=== PATIENT | female | born 1990 | race Hispanic/Latino ===

== ENCOUNTER → 2019-04-27 | Day surgery (SDC) | payer OTHER ==
[~2019-04-27] MED LIST: FENTANYL CITRATE/PF 100MCG/2 ML INJ ONE; LIDOCAINE HCL 2% LOCAL INJ 5 ML SDV VIAL INJ ONE; MIDAZOLAM HCL 2 MG/2 ML VIAL ONE; PROPOFOL IV EMULSION 10 MG/ML 50 ML VIAL ONE; RANITIDINE HCL150 MG PO
--- OUTSIDE RECORDS SUMMARY | 2019-04-27 12:48 | XMS REPORT | Clinical Summary ---
Author Author [place] [facility] Organization [facility] Address Unknown Phone Unavailable Care Team Providers Care Carpentry Professional Name Role Phone Asked, No Pcp PCP Unavailable Allergies No Known Allergies Medications End Date Status Medication Sig Dispensed Refills Start Date Active multivitamin (THERAGRAN) Take 1 tablet 0 tablet by mouth daily. 02/24/2020 Active clotrimazole-betamethason Apply 30 g 0 e (LOTRISONE) 1-0.05 % topically 2 9 creamIndications: Vaginal (two) times a irritation day. 02/24/2019 Discontinued Take 1 tablet 0 vit,ntyf28-[id number]-fpeyi 29 by mouth mg iron- 1 mg tablet per daily. tablet 05/09/2018 ibuprofen (ADVIL,MOTRIN) Take 1 tablet 60 tablet 0 600 MG tablet (600 mg 8 total) by mouth every 6 (six) hours as needed (Cramping, Laceration or Incision Pain) for up to 30 days. Active Problems Problem Noted Date Oligohydramnios 04/05/2018 09/30/2017 Overview: LSIL pap, repeat . O pos BOY! Encounters Care Team Description Date Type Specialty Cynthia Nelson NP Pelvic pressure in female (Primary Dx); Vaginal irritation; Pelvic pain 02/24/2019 Office Visit Obstetrics and Gynecology Lilia Castillo MA 05/27/2018 Telephone Obstetrics and Gynecology Beto Russo MD Encounter for visit (Primary Dx); LGSIL on Pap smear of cervix 05/23/2018 Office Visit Obstetrics and Gynecology after 04/26/2018 Immunizations Name Dates Previously Given Next Due Tdap 04/08/2018 Family History Medical History Relation Name Comments No Known Problems Father No Known Problems Mother Relation Name Status Comments Father Mother Social History Date Tobacco Use Types Packs/Day Years Used Never Smoker Smokeless Tobacco: Never Used Tobacco Cessation: Counseling Given: Yes Alcohol Use Drinks/Week oz/Week Comments No Sex Assigned at Date Recorded Not on file Industry Job Start Date Occupation Not on file Not on file Not on file Travel End Travel History Travel Start No recent travel history available. Last Filed Vital Signs Time Taken Vital Sign Reading 02/24/2019 12:04 PM CDT Blood Pressure 134/93 02/24/2019 11:26 AM CDT Pulse 111 05/23/2018 10:27 AM CDT Temperature 36.6 C (97.9 F) - Respiratory Rate - - Oxygen Saturation - - Inhaled Oxygen - Concentration 02/24/2019 11:26 AM CDT Weight 63.5 kg (140 lb) 05/23/2018 10:27 AM CDT Height 152.4 cm (5') 05/23/2018 10:27 AM CDT Body Mass Index 27.34 Plan of Treatment Health Maintenance Due Date Last Done Comments INFLUENZA VACCINE 04/13/2019 Procedures Comments Procedure Name Priority Date/Time Associated Diagnosis POC URINALYSIS DIPSTICK Routine 02/24/2019 Pelvic pressure in female 12:14 PM CDT SURESWAB(R), CANDIDIASIS, Routine 02/24/2019 PCR (REFLEX) 12:05 PM CDT SURESWAB(R) TRICHOMONAS Routine 02/24/2019 VAGINALIS RNA, QL, TMA 12:05 PM CDT SURESWAB(R) BACTERIAL Routine 02/24/2019 VAGINOSIS DNA, QN, PCR 12:05 PM CDT (REFLEX) CHLAMYDIA/N. GONORRHOEAE Routine 02/24/2019 RNA, TMA (REFLEX) 12:05 PM CDT CHLAMYDIA/N. GONORRHOEAE Routine 05/23/2018 RNA, TMA 11:13 AM CDT THINPREP TIS PAP REFLEX Routine 05/23/2018 HPV MRNA E6/E7 11:13 AM CDT PAP W/AGE BASED SCREENING Routine 05/23/[address]/NG 11:13 AM CDT visit LGSIL on Pap smear of cervix after 04/26/2018 Results * POC urinalysis dipstick (02/24/2019 12:14 PM CDT) Color urine, Yellow POC Clarity urine, Clear POC Glucose urine, Negative Negative POC Bilirubin Negative Negative urine, POC Ketones urine, Negative Negative POC Specific 1.010 1.005 - 1.030 gravity urine, POC Blood urine, Negative Negative POC pH urine, POC 6.0 5.0, 5.5, 6.0, 6.5, 7.0, 7.5, 8.0, 8.5 Protein urine, Negative Negative POC Urobilinogen <2.0 <2.0 urine, POC Nitrite urine, Negative Negative POC Leukocyte Negative Negative esterase urine, POC Specimen Urine * SURESWAB(R), CANDIDIASIS, PCR (02/24/2019 12:05 PM CDT) Pathologist [facility] C. albicans, NOT DETECTED [facility] C. glabrata, NOT DETECTED [facility] C. tropicalis, NOT DETECTED [facility] C. NOT DETECTED [facility] parapsilosis, Comment: DIAGNOSTICS DNA REFERENCE RANGE: NOT DETECTED This test was developed and its analytical performance characteristics have been determined by [facility]. It has not been cleared or approved by FDA. This assay has been validated pursuant to the CLIA regulations and is used for clinical purposes. Specimen Resulting Agency Comment Performing Organization Information: Site ID: [id number] Name: [facility] Address: [address] [place] [id number] Director: Tony Gee MD Performing Organization Address City/State/Zipcode Phone Number [facility] [address] [place] [address] [phone] * SURESWAB(R) TRICHOMONAS VAGINALIS RNA, QL, TMA (Reflex) (02/24/2019 12:05 PM CDT) Pathologist [facility] Sureswab(r) NOT DETECTED [facility] trichomonas Comment: DIAGNOSTICS vaginalis RNA, REFERENCE RANGE: NOT DETECTED QL, TMA This test was performed using the APTIMA(R) Trichomonas vaginalis assay (Gen-Probe(R)). For additional information, please refer to http://education.Wobeek.com/faq/Trichomonastma Specimen Resulting Agency Comment Performing Organization Information: Site ID: [id number] Name: [facility] Address: [address] [place] [address], [place] [address] Director: Tony Gee MD Performing Organization Address City/State/Zipcode Phone Number THA ALFARO [address] [place] [address] [phone] * SURESWAB(R) BACTERIAL VAGINOSIS DNA, QN, PCR (02/24/2019 12:05 PM CDT) BV category NOT SUPPORTIVE [facility] Lactobacillus 7.5 Log (cells/mL) [facility] species [facility] Atopobium NOT DETECTED Log (cells/mL) [facility] vaginae [facility] Megasphaera NOT DETECTED Log (cells/mL) [facility] Gardnerella <4.7 Log (cells/mL) [facility] vaginalis Comment: DIAGNOSTICS REFERENCE RANGE: BV Category: NOT SUPPORTIVE NOT SUPPORTIVE OF BV: The pattern of results is not supportive of a diagnosis of BV: 1) Presence of Lactobacillus spp., G. vaginalis levels less than 6.0 log cells/mL, and absence of A. vaginae and Megasphaera spp; or 2) Absence of all targeted organisms; or 3) Absence of Lactobacillus spp. plus G. vaginalis detected at levels less than 6.0 log cells/mL and absence of A. vaginae and Megasphaera spp. EQUIVOCAL FOR BV: The pattern of results is neither supportive nor not supportive of a diagnosis of BV. The patient may be in transition into or out of BV: Presence of Lactobacillus spp. plus G. vaginalis (greater or equal to 6.0 log cells/mL) and/or one of the other BV-associated pathogens. SUPPORTIVE OF BV: The pattern of results is supportive of a diagnosis of BV: Absence of Lactobacillus spp. and presence of G. vaginalis greater than or equal to 6.0 log cells/mL and/or one or both of the other BV-associated pathogens. Concentration for Lactobacilli (L. acidophilus/crispatus, L. jensenii) are collectively reported under the term "Lactobacillus spp.", as these species are among the peroxide producing Lactobacilli thought to be protective against bacterial vaginosis. Atopobium vaginae, Megasphaera spp., and Gardnerella (greater than 6.0 log cells/mL) have been associated with vaginosis when present in the absence of peroxidase producing Lactobacilli. This test was developed and its analytical performance characteristics have been determined by [facility]. It has not been cleared or approved by FDA. This assay has been validated pursuant to the CLIA regulations and is used for clinical purposes. Specimen Resulting Agency Comment Performing Organization Information: Site ID: [id number] Name: [facility] Address: [address] [place] [phone] Director: Tony Gee MD Performing Organization Address [facility] Phone Number [facility] [address] [place] [address] [phone] * CHLAMYDIA/N. GONORRHOEAE RNA, TMA (02/24/2019 12:05 PM CDT) Chlamydia NOT DETECTED [facility] trachomatis [facility] RNA, TMA Neisseria NOT DETECTED [facility] gonorrhoeae Comment: DIAGNOSTICS RNA, TMA REFERENCE RANGE:NOT DETECTED This test was performed using the APTIMA(R) COMBO2 Assay (GENQuanta Fluid SolutionsPROBE). http://education.Liquid Grids/faq/PTQ067 (This link is being provided for informational/ educational purposes only.) Specimen Resulting Agency Comment Performing Organization Information: Site ID: [id number] Name: [facility] Address: [address] [place] [phone] Director: Tony Gee MD Performing Organization Address [facility] Phone Number [facility] [address] [place] [phone] * PAP W/AGE BASED SCREENING PLUS CT/NG (05/23/2018 11:13 AM CDT) Comment Comment: [facility] This order for age-based DIAGNOSTICS-JUNG cervical cancer and STI ING II screening follows ACOG guidelines(PB 168, 140, XOW140). See individual assays for performing site location. Specimen Swab Resulting Agency Comment Performing Organization Information: Site ID: [id number] Name: [facility] Address: [address] [place] [phone] Director: Dr. Aneesh Moser Performing Organization Address City/[facility]/Zipcode Phone Number [facility] [address] [place] [address] II * CHLAMYDIA/N. GONORRHOEAE RNA, TMA (05/23/2018 11:13 AM CDT) Chlamydia NOT DETECTED NOT DETECTED [facility] trachomatis [facility]STICS RNA, [facility] Neisseria NOT DETECTED NOT DETECTED [facility] gonorrhoeae DIAGNOSTICS RNA, TMA [place] (Always Comment: [facility] message) This test was performed using DIAGNOSTICS the APTIMA COMBO2 Assay [place] (Octonius.). The analytical performance characteristics of this assay, when used to test SurePath specimens have been determined by [facility]. Specimen Resulting Agency Comment Performing Organization Information: Site ID: [id number] Name: [facility] Address: [address] [place] [phone] Director: Marisa Lazar Performing Organization Address [facility]/Zipcode [place] [address] * THINPREP TIS PAP REFLEX HPV mRNA E6/E7 (05/23/2018 11:13 AM CDT) Clinical None given [facility] information DIAGNOSTICS [place] Date of last NONE GIVEN [facility] menstrual DIAGNOSTICS period [place] Prev. pap: NONE GIVEN [facility] [place] Prev. bx: NONE GIVEN [facility] [place] Source None given [facility] [place] Statement of Comment: [facility] adequacy Satisfactory for evaluation. DIAGNOSTICS Endocervical/transformation MIRANDA zone component present. Age and/or menstrual status not provided Interpretation/ Comment: Negative for [facility] result: intraepithelial lesion or DIAGNOSTICS malignancy. [place] Comment Comment: [facility] This Pap test has been DIAGNOSTICS evaluated with [employer] technology. Cytotechnologis Comment: [facility] t YL, CT(ASCP) DIAGNOSTICS CT screening location: [place] [address] Review Comment: [facility] cytotechnologis AMT, CT(ASCP) DIAGNOSTICS t CT screening location: [place] [address] Comment Comment: [facility] EXPLANATORY NOTE: DIAGNOSTICS The Pap is a screening test [place] for cervical cancer. It is not a diagnostic test and is subject to false negative and false positive results. It is most reliable when a satisfactory sample, regularly obtained, is submitted with relevant clinical findings and history, and when the Pap result is evaluated along with historic and current clinical information. Specimen Resulting Agency Comment Performing Organization Information: Site ID: [id number] Name: [facility] Address: [address] [place] [phone] Director: Marisa Lazar Performing Organization Address City/State/Zipcode Phone Number [facility] [place] [phone] after 04/26/2018 Advance Directives Patient has advance care planning documents on file. For more information, blaine molina contact: Ruben Garrido [address] [place] [address]
--- OUTSIDE RECORDS SUMMARY | 2019-04-27 12:48 | XMS REPORT ---
Author Author Admin, [place] Organization [facility] Address [address] [address] Phone Allergies, Adverse Reactions, Alerts Allergy Name Reaction Description Start Date Severity Status Provider No Known Allergies Annette Damico Conditions or Problems Problem Name Problem Code Onset Date Status Entry Date Provider Comment Standard Description Annotate Vulvar irritation 624.8 Active Jessica Torresperico LAMAR Other specified noninflammatory disorders of vulva and perineum Screening for diabetes mellitus V77.1 Active Jessica Melissa LAMAR Screening for diabetes mellitus BMI 29.0-29.9 Active Jessica Torres ANNAMARIE Body Mass Index 29.0-29.9, adult Routine gynecological examination V72.31 Active Jessica Torres ANNAMARIE Routine gynecological examination Screening for lipid disorder V77.91 Active Jessica Torres ANNAMARIE Screening for lipoid disorders Screening visit for sexually trans dis V74.5 Active Jessica Melissa LAMAR Screening examination for venereal disease Dysuria 788.1 Inactive Jessica Torres ANNAMARIE Dysuria Urinary tract infection (UTI) ICD-599.0 Inactive Jessica Torres ELAINENP Urinary tract infection (UTI) 599.0 Resolved Jessica Torres ANNAMARIE Urinary tract infection, site not specified Medication List Medication Instructions Start Date Stop Date Generic Name NDC Status Provider Patient Instruction NYSTATIN-TRIAMCINOLONE 421950-7.1 UNIT/GM-% EXTERNAL OINTMENT Apply to affected area twice a day for 14 days NYSTATIN-TRIAMCINOLONE 49907739342 Active Jessica HENRYANNAMARIE Active MACROBID 100 MG ORAL CAPSULE Take 1 capsule by mouth twice a day MACROBID 100 MG ORAL CAPSULE 5195267 NITROFURANTOIN MONOHYD MACRO Inactive MACROBID 100 MG ORAL CAPSULE Take 1 capsule by mouth twice a day NITROFURANTOIN MONOHYD MACRO [id number] No Longer Active Jessica HENRYANNAMARIE Active Vital Signs Date Name Value Unit Range Description blood pressure, diastolic, second observation 88 mm[Hg] BP madrid blood pressure, diastolic 88 mm[Hg] BP [place] blood pressure, systolic, second observation 130 mm[Hg] BP sys blood pressure, systolic 130 mm[Hg] BP sys height E&M 60.50 [in_us] Bdy height pulse rate E&M 100 /min Heart rate respiratory rate E&M 22 /min Resp rate temperature E&M 98.6 [degF] Body temperature weight E&M 137 [lb_av] Weight Measured blood pressure, diastolic 89 mm[Hg] BP madrid blood pressure, systolic 137 mm[Hg] BP sys height E&M 60.50 [in_us] Bdy height pulse rate E&M 116 /min Heart rate temperature E&M 98.5 [degF] Body temperature weight E&M 141.06 [lb_av] Weight Measured Diagnostic Results Date Name Value Unit Range Description Office Visit: Annual / Family Planning Female/S12 - Chemistry beta HCG, urine, semiquantitative negative Lab Report: CBC With Differential/Platelet, Comp. Metabolic Panel (14), ... - Chemistry very low density lipoproteins 15 mg/dL 5-40 hepatitis B surface antigen Negative Negative chloride, serum 102 mmol/L 96-106 urea nitrogen, blood 11 mg/dL 6-20 Office Visit: Annual / Family Planning Female/S12 - Urinalysis leukocyte esterase, urine, by dipstick negative Lab Report: CBC With Differential/Platelet, Comp. Metabolic Panel (14), ... - Hematology mean corpuscular hemoglobin concentration, RBC 35.4 G/DL % 31.5-35.7 erythrocyte (RBC) count 5.15 X10E6/UL 10*6/mm3 3.77-5.28 Office Visit: Annual / Family Planning Female/S12 - Urinalysis nitrite, urine, semiquantitative negative Lab Report: CBC With Differential/Platelet, Comp. Metabolic Panel (14), ... - Serology hepatitis C antibody, serum <0.1 0.0-0.9 Office Visit: Annual / Family Planning Female/S12 - Urinalysis urine color yellow Lab Report: CBC With Differential/Platelet, Comp. Metabolic Panel (14), ... - Chemistry Absolute Neutrophils 6.4 X10E3/UL 10*3/uL 1.4-7.0 Office Visit: Annual / Family Planning Female/S12 - Urinalysis bilirubin, urine negative Lab Report: CBC With Differential/Platelet, Comp. Metabolic Panel (14), ... - Chemistry LDL cholesterol, serum 86 mg/dL 0-99 urea nitrogen/creatinine ratio, serum 15 9-23 Lab Report: CBC With Differential/Platelet, Comp. Metabolic Panel (14), ... - Hematology mean corpuscular volume, RBC 87 fL 79-97 Lab Report: CBC With Differential/Platelet, Comp. Metabolic Panel (14), ... - Chemistry HDL cholesterol, serum 41 mg/dL >39 Lab Report: CBC With Differential/Platelet, Comp. Metabolic Panel (14), ... - Hematology monocytes as percent of blood leukocytes 5 % Not Estab. Lab Report: CBC With Differential/Platelet, Comp. Metabolic Panel (14), ... - Chemistry albumin/globulin ratio, serum 2.1 1.2-2.2 creatinine, serum 0.72 mg/dL 0.57-1.00 cholesterol, serum 142 mg/dL [phone]/05/24 bilirubin, serum, total 1.6 mg/dL 0.0-1.2 Lab Report: Pap IG, rfx HPV ASCU - Lab Human Papillomavirus test result HPVNotTested Lab Report: CBC With Differential/Platelet, Comp. Metabolic Panel (14), ... - Hematology Eosinophil Absolute Count 0.1 X10E3/UL 10*3/uL 0.0-0.4 Lab Report: Ct, Ng, Trich vag by NATHAN - Lab chlamydia DNA probe Negative Negative Office Visit: Annual / Family Planning Female/S12 - Urinalysis appearance, urine clear blood in urine (hemoglobin) by dipstick negative Lab Report: CBC With Differential/Platelet, Comp. Metabolic Panel (14), ... - Chemistry aspartate aminotransferase (SGOT), serum 16 U/L 0-40 Lab Report: CBC With Differential/Platelet, Comp. Metabolic Panel (14), ... - Hematology red blood cell distribution width 14.9 % 12.3-15.4 leukocyte count, blood 9.6 X10E3/UL 10*3/mm3 3.4-10.8 Office Visit: Annual / Family Planning Female/S12 - Urinalysis pH, urine, semiquantitative 6.5 Lab Report: CBC With Differential/Platelet, Comp. Metabolic Panel (14), ... - Chemistry potassium, serum 4.2 mmol/L 3.5-5.2 albumin, serum 5.0 g/dL 3.5-5.5 immature granulocytes, percentage of total cells, blood 0 % Not Estab. Lab Report: CBC With Differential/Platelet, Comp. Metabolic Panel (14), ... - Hematology lymphocyte count, blood, automated 2.6 X10E3/UL 10*3/mm3 0.7-3.1 Lab Report: Ct, Ng, Trich vag by NATHAN - Microbiology Neisseria gonorrhoeae DNA probe Negative Negative Lab Report: CBC With Differential/Platelet, Comp. Metabolic Panel (14), ... - Hematology hematocrit, blood 44.6 % 34.0-46.6 Lab Report: CBC With Differential/Platelet, Comp. Metabolic Panel (14), ... - Chemistry sodium, serum 144 mmol/L 134-144 Lab Report: CBC With Differential/Platelet, Lipid Panel, Panel [id number], H ... - Urinalysis urine culture Klebsiella pneumoniae Lab Report: CBC With Differential/Platelet, Comp. Metabolic Panel (14), ... - Hematology neutrophils as percent of blood leukocytes 67 % Not Estab. basophils as percent of blood leukocytes 0 % Not Estab. Office Visit: Annual / Family Planning Female/S12 - Urinalysis protein, urine, semiquantitative (dipstick) negative Lab Report: CBC With Differential/Platelet, Comp. Metabolic Panel (14), ... - Serology rapid plasma reagin antibody, serum Non Reactive Non Reactive Lab Report: CBC With Differential/Platelet, Comp. Metabolic Panel (14), ... - Chemistry carbon dioxide, venous blood 24 mmol/L 20-29 triglyceride, serum, fasting 77 mg/dL 0-149 calcium, serum 9.6 mg/dL 8.7-10.2 alanine aminotransferase (SGPT), serum 11 U/L 0-32 Lab Report: CBC With Differential/Platelet, Comp. Metabolic Panel (14), ... - Hematology mean corpuscular hemoglobin, RBC 30.7 pg 26.6-33.0 Office Visit: Annual / Family Planning Female/S12 - Urinalysis specific gravity, urine 1.015 Lab Report: CBC With Differential/Platelet, Comp. Metabolic Panel (14), ... - Chemistry protein, total, serum 7.4 g/dL 6.0-8.5 alkaline phosphatase, serum 74 U/L 39-117 Lab Report: CBC With Differential/Platelet, Comp. Metabolic Panel (14), ... - Hematology hemoglobin, blood 15.8 g/dL 11.1-15.9 lymphocytes as percent of blood leukocytes 27 % Not Estab. Lab Report: CBC With Differential/Platelet, Comp. Metabolic Panel (14), ... - Chemistry hemoglobin A1C, blood, as % of total hemoglobin 5.1 % 4.8-5.6 Office Visit: Annual / Family Planning Female/S12 - Urinalysis glucose, urine, semiquantitative negative Lab Report: CBC With Differential/Platelet, Comp. Metabolic Panel (14), ... - Genetics/fertility eGFR if 132 mL/min/1.73m2 >59 Lab Report: CBC With Differential/Platelet, Comp. Metabolic Panel (14), ... - Hematology basophil count, absolute 0.0 x10E3/uL 0.0-0.2 Lab Report: CBC With Differential/Platelet, Comp. Metabolic Panel (14), ... - Chemistry globulin, serum 2.4 1.5-4.5 Estimated Glomerular Filtration Rate (calc) 114 mL/min/1.73m2 >59 Lab Report: CBC With Differential/Platelet, Comp. Metabolic Panel (14), ... - Hematology eosinophils as percent of blood leukocytes 1 % Not Estab. Lab Report: CBC With Differential/Platelet, Comp. Metabolic Panel (14), ... - Chemistry blood glucose, random 100 mg/dL 65-99 Office Visit: Annual / Family Planning Female/S12 - Urinalysis urobilinogen, urine, semiquantitative (dipstick) negative Lab Report: CBC With Differential/Platelet, Comp. Metabolic Panel (14), ... - Hematology monocyte count, blood, automated 0.5 X10E3/UL 10*3/uL 0.1-0.9 platelet count 271 X10E3/UL 10*3/mm3 150-450 Office Visit: Annual / Family Planning Female/S12 - Urinalysis ketones, urine, by test strip negative Encounters Date Encounter Provider Code Facility 14:54:34 CDT Est Patient Exp Problem - 06260 Jessica Torres [facility] CPT-42609 [facility] [employer]OUND [employer]ER 13:40:20 CDT Est Patient Exp Problem - 81621 Jessica Torres ANNAMARIE CPT-93284 [facility] [employer]OUND WORKER 12:38:34 CDT New Patient Detailed - 97950 Jessica Torres ANNAMARIE CPT-28399 [facility] [employer] WORKER Procedures Code Procedure Name Date Entry Date Standard Description CPT-93009 Urinalysis - - In House 12:38:34 CDT CPT-83633 Urinalysis - Dip only - In House 12:38:34 CDT
[2019-04-27 16:10] VITALS: BP 129/98
--- NOTE | 2019-04-27 18:28 | Operative Report ---
DATE OF PROCEDURE: 04/27/2019 SURGEON: Matt Nguyen MD PROCEDURE: EGD with biopsies. INDICATIONS FOR EGD: Upper abdominal pain, heartburn. MEDICATIONS: The patient was done under MAC, please see anesthesiologist's note. PROCEDURE IN DETAIL: With the patient in left lateral decubitus position, a flexible fiberoptic Olympus gastroscope was introduced into the esophagus under direct visualization without any difficulty. There was some patchy erythema noted in distal esophagus. The scope was then advanced with ease into the stomach. Mucosa overlying the antrum and the body revealed some patchy intense erythema and low-grade edema and biopsies were obtained and sent to stain for H. pylori. Pylorus was of normal contour and shape, was intubated with ease and the scope was advanced all the way to the second portion of the duodenum. Biopsies were obtained from the second portion and duodenal bulb to rule out sprue. The scope was then withdrawn back into the stomach and retroflexed, mucosa overlying the fundus and the cardia appeared to be within normal limits. The scope was then straightened out, it was subsequently withdrawn, and the patient tolerated the procedure well. IMPRESSION: 1. Distal esophagitis. 2. Gastritis, biopsied, biopsies sent to stain for Helicobacter pylori. 3. Rule out sprue. PLAN: Follow up histology. Initiate Protonix 40 mg one p.o. q.a.m. before meals. Matt Nguyen MD [facility]/MODL /[id number]
== END | disposition home or self-care (01) ==
LOC: OR 12:46
PROVIDERS: ATTEND Internal Medicine Gastroenterology
DX: K29.70 Gastritis, unspecified, without bleeding (principal); K20.9 Esophagitis, unspecified; K21.9 Gastro-esophageal reflux disease without esophagitis; K14.9 Disease of tongue, unspecified; R03.0 Elevated blood-pressure reading, without diagnosis of hypertension; F41.9 Anxiety disorder, unspecified; F32.9 Major depressive disorder, single episode, unspecified
CPT/HCPCS: 43239; 81025; J2001; J2250; J2704; J3010